=== PATIENT | female | born 1965 | race Two or more races ===

== ENCOUNTER 2021-09-05 20:29 | Inpatient (IN) | payer OTHER ==
[~2021-09-05] VITALS: Ht 175.3 cm; Wt 50.3 kg
[2021-09-05] MEDS ORDERED: INOSITOL650 MG (21:46)
[2021-09-05] MEDS ORDERED: MELATONIN1 MG/1 ML (21:46)
[2021-09-05] MEDS ORDERED: ZOVIRAX400 MG (21:47)
[2021-09-09] MEDS ORDERED: CLONAZEPAM0.5 MG PO (19:02)
[2021-09-09] MEDS ORDERED: NEURONTIN600 MG PO (19:03)
[2021-09-09] MEDS ORDERED: GABAPENTIN300 MG PO (19:03)
== END 2021-09-09 21:09 | disposition home or self-care (01) | DRG 948 ==
LOC: MEDJ 20:29
PROVIDERS: ADMIT Internal Medicine Hematology & Oncology; ATTEND Internal Medicine Hematology & Oncology
PROC: BR30ZZZ Magnetic Resonance Imaging (MRI) of Cervical Spine (ICD-10-PCS; principal; 2021-09-09)
PROC: BR37ZZZ Magnetic Resonance Imaging (MRI) of Thoracic Spine (ICD-10-PCS; 2021-09-09)
PROC: BR39ZZZ Magnetic Resonance Imaging (MRI) of Lumbar Spine (ICD-10-PCS; 2021-09-09)
DX: G93.3 Postviral and related fatigue syndromes (principal); U09.9 Post COVID-19 condition, unspecified; E61.7 Deficiency of multiple nutrient elements; F41.8 Other specified anxiety disorders; M79.7 Fibromyalgia; M54.59 Other low back pain
CPT/HCPCS: 240; 72141; 72146; 72158

== ENCOUNTER 2021-10-28 20:08 | Inpatient (IN) | payer OTHER ==
[~2021-10-28] VITALS: Ht 175.3 cm; Wt 50.8 kg
[~2021-10-28 20:08] MED LIST: CLONAZEPAM0.5 MG PO; GABAPENTIN300 MG PO; INOSITOL650 MG; MELATONIN1 MG/1 ML; NEURONTIN600 MG PO; ZOVIRAX400 MG
--- NOTE | 2021-10-28 20:28 | NUR ---
SE LLAMA PTE Y SE ENCUENTRA EN REGISTRO.
--- NOTE | 2021-10-28 20:52 | NUR ---
SE RECIBE PTE ALERTA Y ORIENTADA X3 QUIEN REFIERE SER PTE DEL DR ALLISON DAWSON PARA ADMISION DIRECTA. SE MONITOREAN S/V Y SE UBICA.
[2021-11-04] MEDS ORDERED: HYOSCYAMINE0.125 M1 SL (18:25)
[2021-11-04] MEDS ORDERED: BUTALB-ACETAMI1 EAC2 PO (18:26)
[2021-11-04] MEDS ORDERED: CLONAZEPAM1 MG PO (18:27)
[2021-11-04] MEDS ORDERED: DIAZEPAM5 MG PO (18:28)
[2021-11-04] MEDS ORDERED: GABAPENTIN300 MG PO (18:29)
[2021-11-04] MEDS ORDERED: NEURONTIN600 MG PO (18:29)
[2021-11-04] MEDS ORDERED: OXYC1TAB9 PO (18:30)
[2021-11-04] MEDS ORDERED: INTESTINEX680 M1 PO (18:30)
== END 2021-11-04 22:57 | disposition home or self-care (01) | DRG 74 ==
LOC: ER 20:08 → SURH 22:13
PROVIDERS: ADMIT Internal Medicine Hematology & Oncology; ATTEND Internal Medicine Hematology & Oncology
DX: G62.2 Polyneuropathy due to other toxic agents (principal); R53.83 Other fatigue; U09.9 Post COVID-19 condition, unspecified; G61.9 Inflammatory polyneuropathy, unspecified; J02.8 Acute pharyngitis due to other specified organisms; J06.9 Acute upper respiratory infection, unspecified; E86.0 Dehydration; E87.6 Hypokalemia; M51.37 Other intervertebral disc degeneration, lumbosacral region; M50.30 Other cervical disc degeneration, unspecified cervical region; K59.09 Other constipation; M79.7 Fibromyalgia; K58.9 Irritable bowel syndrome, unspecified; G44.209 Tension-type headache, unspecified, not intractable

== ENCOUNTER 2022-05-04 10:42 | Outpatient (CLI) | payer OTHER ==
[~2022-05-04 10:42] MED LIST changes: +BUTALB-ACETAMI1 EAC2 PO; +CLONAZEPAM1 MG PO; +DIAZEPAM5 MG PO; +HYOSCYAMINE0.125 M1 SL; +INTESTINEX680 M1 PO; +OXYC1TAB9 PO
== END 2022-05-04 10:47 | disposition home or self-care (01) ==
LOC: MAMO-SONO 10:42
PROVIDERS: ATTEND Internal Medicine Cardiovascular Disease
DX: N63.11 Unspecified lump in the right breast, upper outer quadrant (principal); Z12.31 Encounter for screening mammogram for malignant neoplasm of breast; R10.9 Unspecified abdominal pain; J44.9 Chronic obstructive pulmonary disease, unspecified

== ENCOUNTER 2022-05-04 11:39 | Outpatient (CLI) | payer OTHER | END 2022-05-04 11:40 | disposition home or self-care (01) | LOC: NUCLEAR 11:39 | PROVIDERS: ATTEND Internal Medicine Cardiovascular Disease | DX: M81.0 Age-related osteoporosis without current pathological fracture (principal); E55.9 Vitamin D deficiency, unspecified; Z88.2 Allergy status to sulfonamides; Z88.8 Allergy status to other drugs, medicaments and biological substances; Z91.011 Allergy to milk products ==

== ENCOUNTER → 2022-05-04 11:39 | Outpatient (CLI) | payer OTHER | END | disposition home or self-care (01) | LOC: LAB 08:26 | PROVIDERS: ATTEND Internal Medicine Cardiovascular Disease | DX: I10 Essential (primary) hypertension (principal); E11.9 Type 2 diabetes mellitus without complications; E03.9 Hypothyroidism, unspecified; E78.2 Mixed hyperlipidemia; Z12.11 Encounter for screening for malignant neoplasm of colon; N80.9 Endometriosis, unspecified; M10.9 Gout, unspecified; M19.90 Unspecified osteoarthritis, unspecified site; K85.90 Acute pancreatitis without necrosis or infection, unspecified; R10.9 Unspecified abdominal pain ==